=== PATIENT | female | born 1980 | race Native Hawaiian/Other Pacific Islander ===

== ENCOUNTER 2018-08-16 03:58 | Emergency (ER) | payer OTHER ==
[~2018-08-16] VITALS: Ht 165.1 cm; Wt 88.5 kg
[2018-08-16 04:44] LABS: PLATELET COUNT 224 K/uL (152-353)
[2018-08-16 04:50] LABS: POTASSIUM 3.6 mmol/L (3.6-5.2)
[2018-08-16 06:19] VITALS: BP 97/58; TEMP 98
== END 2018-08-16 06:23 | disposition home or self-care (01) ==
LOC: ED 03:58
PROVIDERS: Internal Medicine
DX: K52.9 Noninfective gastroenteritis and colitis, unspecified (principal); R11.2 Nausea with vomiting, unspecified
CPT/HCPCS: 36415; 80053; 82150; 83690; 85027; 96360; 96375; 99284; J2405

== ENCOUNTER 2018-11-17 17:09 | Emergency (ER) | payer OTHER ==
[~2018-11-17] VITALS: Ht 152.4 cm; Wt 89.4 kg
[2018-11-17 18:06] VITALS: BP 115/72; TEMP 98.2
== END 2018-11-17 18:09 | disposition home or self-care (01) ==
LOC: ED 17:09
DX: S61.432A Puncture wound without foreign body of left hand, initial encounter (principal); W26.0XXA Contact with knife, initial encounter
CPT/HCPCS: 99281; 99282

== ENCOUNTER 2019-01-29 15:09 | Emergency (ER) | payer OTHER ==
[~2019-01-29] VITALS: Ht 152.4 cm; Wt 89.4 kg
[2019-01-29] MEDS ORDERED: RANI150T78 PO (15:27)
[2019-01-29 15:43] LABS: PLATELET COUNT 223 K/uL (152-353)
[2019-01-29 15:56] LABS: SODIUM 140 mmol/L (136-145)
== END 2019-01-29 19:38 | disposition home or self-care (01) ==
LOC: ED 15:13
PROVIDERS: Emergency Medicine
DX: R07.89 Other chest pain (principal)
CPT/HCPCS: 80053; 82550; 82553; 84484; 85027; 93005; 99283